=== PATIENT | male | born 1975 | race Caucasian/White ===

== ENCOUNTER 2017-08-27 13:42 | Emergency (ER) | payer SELFPAY ==
[2017-08-27] MEDS ORDERED: Amoxicillin-Clav 875-125 mg Tab PO STA (15:14)
[2017-08-27] MEDS ORDERED: Naproxen 550 mg Tab PO STA (15:14)
--- NOTE | 2017-08-27 15:18 | C.PDOC ---
History Of Present Illness Pt states he had a "ball" around his anal area that ruptured yesterday. Time Seen by Provider: 08/27/17 14:44 Chief Complaint (Nursing): Abnormal Skin Integrity History Per: Patient Onset/Duration Of Symptoms: Days (about 1 week) Current Symptoms Are (Timing): Still Present Location Of Injury: Right: Buttock Quality Of Symptoms: Painful, Swollen, Draining Severity: Moderate Additional History Per: Prior Records Past Medical History Reviewed: Historical Data, Nursing Documentation, Vital Signs Vital Signs: Last Vital Signs Temp 98.5 F 08/27/17 13:50 Pulse 115 H 08/27/17 13:50 Resp 20 08/27/17 13:50 BP 145/86 08/27/17 13:50 Pulse Ox 98 08/27/17 13:50 - Medical History PMH: No Chronic Diseases, Gastritis Family History: States: Unknown Family Hx - Social History Hx Alcohol Use: Yes Hx Substance Use: No - Immunization History Hx Tetanus Toxoid Vaccination: No Hx Influenza Vaccination: No Hx Pneumococcal Vaccination: No Review Of Systems Except As Marked, All Systems Reviewed And Found Negative. Constitutional: Negative for: Fever, Chills, Weakness Cardiovascular: Negative for: Chest Pain, Light Headedness Respiratory: Negative for: Shortness of Breath Gastrointestinal: Positive for: Rectal Pain (?). Negative for: Vomiting, Abdominal Pain, Diarrhea Genitourinary: Negative for: Dysuria Musculoskeletal: Negative for: Neck Pain, Back Pain Skin: Negative for: Rash Neurological: Negative for: Weakness, Numbness Physical Exam - Physical Exam Appears: Non-toxic, No Acute Distress Skin: Warm, Dry Head: Atraumatic, Normacephalic Eye(s): bilateral: Normal Inspection, PERRL, EOMI Neck: Normal ROM, Supple Cardiovascular: Rhythm Regular Respiratory: Normal Breath Sounds, No Accessory Muscle Use Gastrointestinal/Abdominal: Soft, No Tenderness Rectal: Other (right sided perianal abscess that is draining. No signs of kaiser- rectal abscess) Back: No CVA Tenderness Extremity: Normal ROM Neurological/Psych: Oriented x3, Normal Motor, Normal Sensation ED Course And Treatment O2 Sat by Pulse Oximetry: 98 Pulse Ox Interpretation: Normal Disposition Counseled Patient/Family Regarding: Diagnosis, Need For Followup, Rx Given - Disposition Referrals: [facility] [Outside] Disposition: HOME/ ROUTINE Disposition Time: 15:19 Condition: STABLE Additional Instructions: Follow up in the clinic within 1 week. Return to the ER if you develop fever, chills, lethargy, dizziness, worsening of symptoms or if you have any other concerns. Prescriptions: Amoxicillin/Clavulanate [Augmentin 875 MG-125 MG] 1 tab PO BID #14 tab Docusate [Colace] 100 mg PO BID PRN #60 cap PRN Reason: Constipation Naproxen [Naprosyn] 1 tab PO BID PRN #20 tab PRN Reason: Pain Instructions: Anorectal Abscess and Anal Fistula (ED) Forms: [employer] (Czech) Print Language: JAMAICAN - Clinical Impression Clinical Impression: Perianal abscess
[2017-08-27 15:32] VITALS: BP 115/81; PULSE 89; RESP 18; TEMP 98.4; O2SAT 97
[2017-08-27] MEDS ORDERED: Naproxen 550 mg Tab PO ONE (15:44)
[2017-08-27] MEDS ORDERED: Amoxicillin-Clav 500-125 mg Tab PO ONE (15:45)
== END 2017-08-27 15:54 | disposition home or self-care (01) ==
LOC: C.ER 13:42
DX: K61.0 Anal abscess (principal)